=== PATIENT | male | born 1995 | race Caucasian/White ===

== ENCOUNTER 2019-06-27 17:00 | Emergency (ER) | payer OTHER ==
[~2019-06-27] VITALS: Ht 180.3 cm; Wt 94.3 kg
[~2019-06-27 17:00] MED LIST: AZITHROMYCIN 2250 MG PO; DOXYCYCLINE 10100 MG PO; HYDROCODON-ACE1 EACH PO; IBUPROFEN 800800 MG PO; ROBAXIN500 MG PO
[2019-06-27] MEDS ORDERED: NOHOMEMEDICATIONS (17:10)
[2019-06-27] MEDS ORDERED: CLEOCIN HCL300 MG PO (18:33)
[2019-06-27 18:44] VITALS: BP 115/66
== END 2019-06-27 18:45 | disposition home or self-care (01) ==
LOC: M.ERS 17:00
DX: L02.612 Cutaneous abscess of left foot (principal); Z90.89 Acquired absence of other organs; Z98.890 Other specified postprocedural states

== ENCOUNTER 2021-11-06 19:51 | Emergency (ER) | payer OTHER ==
[~2021-11-06] VITALS: Ht 180.3 cm; Wt 99.8 kg
[~2021-11-06 19:51] MED LIST changes: +CLEOCIN HCL300 MG PO; +NOHOMEMEDICATIONS
[2021-11-06] MEDS ORDERED: SUPRAX400 M1 PO (20:45)
[2021-11-06] MEDS ORDERED: DOXYCYCLINE 10100 MG PO (20:45)
[2021-11-06 20:49] LABS: URINE BILIRUBIN NEGATIVE (Negative); URINE BLOOD NEGATIVE (Negative); URINE CLARITY CLEAR; URINE COLOR YELLOW; URINE GLUCOSE-RANDOM NEGATIVE (Negative); URINE KETONES NEGATIVE (Negative); URINE LEUKOCYTES-REFLEX NEGATIVE (Negative); URINE NITRITE-REFLEX NEGATIVE (Negative); URINE PROTEIN NEGATIVE (Negative); URINE SPECIFIC GRAVITY >= 1.030 (1.005-1.030); URINE UROBILINOGEN 0.2 E.U./dl (0.2-1.0)
[2021-11-06 21:03] VITALS: BP 115/66
== END 2021-11-06 21:03 | disposition home or self-care (01) ==
LOC: M.ERS 19:51
PROVIDERS: Nurse Practitioner Family
DX: A64 Unspecified sexually transmitted disease (principal); Z90.89 Acquired absence of other organs